=== PATIENT | female | born 1955 | race Caucasian/White ===

== ENCOUNTER → 2019-03-07 15:35 | Outpatient (CLI) | payer OTHER | END | disposition home or self-care (01) | LOC: D.MRI 15:35 | PROVIDERS: ATTEND Orthopaedic Surgery | DX: M54.5 Low back pain (principal) ==

== ENCOUNTER → 2019-03-17 12:41 | Outpatient (CLI) | payer OTHER ==
--- NOTE | 2019-03-17 14:37 | NUR ---
TIME OUT PERFORMED @ [address] KAUFMAN & NATALIE PINEDA RTR. PATIENT, , & PROCEDURE VERIFIED.
== END | disposition home or self-care (01) ==
LOC: D.RAD 12:41
PROVIDERS: ATTEND Orthopaedic Surgery
DX: M87.859 Other osteonecrosis, unspecified femur (principal)